=== PATIENT | male | born 1965 | race Caucasian/White ===

== ENCOUNTER 2017-08-09 08:18 | Day surgery (SDC) | payer OTHER ==
[~2017-08-09 08:18] MED LIST: DIPHENHYDRAMINE HCL 50 MG/ML VIAL ONE; EPINEPHRINE INJ 1 MG/10 ML DISP.SYRIN ONE; FENTANYL CITRATE INJ/PF 100 MCG/2 ML AMPUL ONE; FLUMAZENIL INJ 0.5 MG/5 ML VIAL ONE; GLUCAGON,HUMAN RECOMB 1 MG INJ ONE; MIDAZOLAM 2 MG/2 ML INJ ONE; NALOXONE HCL INJ/PF 0.4 MG/1 ML SDV ONE; ONDANSETRON HCL INJ/PF 4 MG/2 ML SDV ONE; PROPOFOL INJ 200 MG/20 ML VIAL IV ONE
[2017-08-09 11:29] VITALS: BP 106/75
--- NOTE | 2017-08-09 11:49 | Operative Report ---
Operative Report DATE OF SURGERY: 08/09/17 Operative Report: The risks benefits and alternatives of the procedure explained to the patient in detail and informed consent is obtained.A GIF Olympus video scope was inserted into the patient's mouth and hypopharynx, the esophagus is identified intubated and insufflated, the scope was then advanced through the esophagus stomach and duodenum, retroflexion maneuver is done, the esophagus stomach and first and second portions of the duodenum examined PREOPERATIVE DIAGNOSIS: Dyspepsia. Epigastric pain POSTOPERATIVE DIAGNOSIS: Gastritis status post biopsy rule out Helicobacter pylori. Small area of Bills's esophagus that was ablated in situ OPERATION: EGD with ablation. EGD with biopsy SURGEON: RASHID ROJAS ANESTHESIA: LMAC TISSUE REMOVED OR ALTERED: Gastric mucosal specimen obtained to rule out Helicobacter pylori COMPLICATIONS: None. ESTIMATED BLOOD LOSS: None. INTRAOPERATIVE FINDINGS: As described above. PROCEDURE: Patient tolerated procedure well. No immediate postprocedure complications are noted. Patient discharged in good condition. Discharge date 08/09/2017. Discharge diet: Regular. Discharge activity: Regular. 2-3 week follow-up to discuss findings. Patient is instructed to call the office or proceed to the emergency room should there be any further problems or questions. We will wait on pathology.
--- NOTE | 2017-08-09 17:22 | EKG REPORT ---
SEVERITY:- NORMAL ECG - SINUS RHYTHM : Confirmed by: Cedrick Campbell 09-Aug-2017 17:22:01
== END 2017-08-09 11:35 | disposition home or self-care (01) ==
LOC: OROUT 08:18
PROVIDERS: ATTEND Internal Medicine Gastroenterology
PROC: 0DB68ZX Excision of Stomach, Via Natural or Artificial Opening Endoscopic, Diagnostic (ICD-10-PCS; principal; 2017-08-09 10:45)
PROC: 0D558ZZ Destruction of Esophagus, Via Natural or Artificial Opening Endoscopic (ICD-10-PCS; 2017-08-09 10:45)
DX: K29.50 Unspecified chronic gastritis without bleeding (principal); K22.70 Barrett's esophagus without dysplasia; K44.9 Diaphragmatic hernia without obstruction or gangrene; K21.9 Gastro-esophageal reflux disease without esophagitis; Z88.0 Allergy status to penicillin; Z88.1 Allergy status to other antibiotic agents; Z79.899 Other long term (current) drug therapy; Z79.1 Long term (current) use of non-steroidal anti-inflammatories (NSAID); Z87.891 Personal history of nicotine dependence
CPT/HCPCS: 43270; 43239; 88305 ×2; 93005; 93010; J2704; 740; J0171; J1200; J1610; J2250; J2310; J2405; J3010; J3490

== ENCOUNTER 2018-07-04 07:19 | Day surgery (SDC) | payer OTHER ==
--- NOTE | 2018-06-25 09:55 | RADIOLOGY REPORT (SQ) ---
EXAM DESCRIPTION: CHEST PA/LATERAL COMPLETED DATE/TIME: 06/25/2018 9:18 am REASON FOR STUDY: PRE-OP COMPARISON: 11/10/2015. EXAM PARAMETERS: NUMBER OF VIEWS: two views TECHNIQUE: Digital Frontal and Lateral radiographic views of the chest acquired. RADIATION DOSE: NA LIMITATIONS: none FINDINGS: LUNGS AND PLEURA: No opacities, masses or pneumothorax. No pleural effusion. MEDIASTINUM AND HILAR STRUCTURES: No masses or contour abnormalities. HEART AND VASCULAR STRUCTURES: Heart normal size. No evidence for failure. BONES: No acute findings. HARDWARE: Spinal stimulator electrodes. Surgical clips in the left axilla. OTHER: No other significant finding. IMPRESSION: NO SIGNIFICANT RADIOGRAPHIC FINDING IN THE CHEST. TECHNICAL DOCUMENTATION: JOB ID: [id number] [employer]- All Rights Reserved Reading location - IP/workstation name: [email or web address]
[2018-06-25 10:14] LABS: HEMATOCRIT 44.7 % (37.9-51.0); MEAN CORPUSCULAR HEMOGLOBIN 29.5 pg (27.0-33.4); MEAN CORPUSCULAR HGB CONC 33.6 g/dL (32.0-36.0); MEAN CORPUSCULAR VOLUME 88 fl (80-97); PLATELET COUNT 249 10^3/uL (150-450); RED BLOOD COUNT 5.09 10^6/uL (4.35-5.55); RED CELL DISTRIBUTION WIDTH 13.3 % (11.5-14.0); WHITE BLOOD COUNT 6.6 10^3/uL (4.0-10.5)
[2018-06-25 10:44] LABS: ANION GAP 13 (5-19); BLOOD UREA NITROGEN 11 mg/dL (7-20); CALCIUM 9.7 mg/dL (8.4-10.2); CARBON DIOXIDE 27 mmol/L (22-30); CHLORIDE 105 mmol/L (98-107); GLUCOSE 82 mg/dL (75-110); POTASSIUM 4.6 mmol/L (3.6-5.0); SODIUM 145.4 mmol/L (137-145)
--- NOTE | 2018-06-25 21:52 | EKG REPORT ---
SEVERITY:- NORMAL ECG - SINUS RHYTHM : Confirmed by: Cedrick Campbell 25-Jun-2018 21:51:03
[~2018-07-04 07:19] MED LIST changes: +ACETAMINOPHEN 1,000 MG/100 ML RTUPB IV ONE; +BUPIVACAINE HCL 0.25 % INJ/PF (2.5 MG/1 ML) 30 ML VIAL ONE; +DEXAMETHASONE SOD PHOSPHATE INJ 4 MG/1 ML VIAL ONE; -DIPHENHYDRAMINE HCL 50 MG/ML VIAL ONE; -EPINEPHRINE INJ 1 MG/10 ML DISP.SYRIN ONE; -FLUMAZENIL INJ 0.5 MG/5 ML VIAL ONE; -GLUCAGON,HUMAN RECOMB 1 MG INJ ONE; +LACTATED RINGERS 1000 ML IV PRN; +LIDOCAINE 0.5% INJ-PF (5 MG/ML) 50 ML SDV SUBCUT PRN; +LIDOCAINE 2% INJ-PF (20 MG/ML) 10 ML AMPUL ONE; -NALOXONE HCL INJ/PF 0.4 MG/1 ML SDV ONE; +VANCOMYCIN HCL 1,000 MG in DEXTROSE 5%-WATER 250 ML IV PRN
[2018-07-04] MEDS ORDERED: PROMETHAZINE HCL INJ 25 MG/1 ML VIAL IV PRN ×2 (11:22)
[2018-07-04] MEDS ORDERED: FENTANYL CITRATE INJ/PF 100 MCG/2 ML AMPUL IV PRN ×3 (11:22)
[2018-07-04] MEDS ORDERED: MEPERIDINE HCL/PF INJ 25 MG/1 ML DISP.SYRIN IV PRN (11:22)
[2018-07-04] MEDS ORDERED: ONDANSETRON HCL INJ/PF 4 MG/2 ML SDV IV PRN (11:22)
[2018-07-04] MEDS ORDERED: MORPHINE SULFATE 10 MG/ML INJ IV PRN (11:22)
[2018-07-04] MEDS ORDERED: DIPHENHYDRAMINE HCL 50 MG/ML VIAL IV PRN (11:22)
[2018-07-04] MEDS: FENTANYL CITRATE INJ/PF 100 MCG/2 ML AMPUL ONE ×2 (12:50→12:55)
[2018-07-04] MEDS ORDERED: KETOROLAC TROMETHAMINE INJ/PF 30 MG/1 ML SDV ONE (13:05)
--- NOTE | 2018-07-04 13:16 | Discharge Summary ---
Discharge Summary (SDC) - Discharge Final Diagnosis: Bilateral inguinal hernia Date of Surgery: 07/04/18 Discharge Date: 07/04/18 Condition: Stable Treatment or Instructions: Discharge home. Diet as tolerated. Activity: No lifting more than 10 pounds 4 weeks. Follow-up in 7-10 days. Vichy 10/325 mg p.o. every 6 hours as needed pain. Referrals: CRISTINA MUJICA MD [Primary Care Provider] - Discharge Diet: As Tolerated Respiratory Treatments at Home: Deep Breathing/Coughing, Incentive Spirometer Discharge Activity: No Lifting Over 10 Pounds Home Care Assistance: None Needed Report the Following to Your Physician Immediately: Shortness of Breath, Nausea , Vomiting, Fever over 101 Degrees, Unusual Bleeding
[2018-07-04] MEDS ORDERED: HYDROCODONE/ACETAMINOPHEN 10-325 MG TABLET ONE (13:39)
[2018-07-04 14:29] VITALS: BP 110/60
[2018-07-04] MEDS ORDERED: VECURONIUM BROMIDE INJ 10 MG VIAL IV ONE (15:15)
[2018-07-04] MEDS ORDERED: NEOSTIGMINE METHYLSULFATE 10 MG/10 ML VIAL ONE (15:15)
[2018-07-04] MEDS ORDERED: GLYCOPYRROLATE 1 MG/5 ML SYRINGE ONE (15:15)
[2018-07-04] MEDS ORDERED: SUCCINYLCHOLINE CHLORIDE INJ 200 MG/10 ML VIAL ONE (15:15)
--- NOTE | 2018-07-04 15:40 | Operative Report ---
Nonrecallable Operative Report DATE OF SURGERY: 07/04/18 PREOPERATIVE DIAGNOSIS: Bilateral inguinal hernia POSTOPERATIVE DIAGNOSIS: 1. right-sided pantaloon inguinal hernia. 2. Left- sided indirect inguinal hernia OPERATION: Bilateral laparoscopic, robot-assisted inguinal hernia repair with mesh. SURGEON: SONA RAMSEY ANESTHESIA: GA TISSUE REMOVED OR ALTERED: None COMPLICATIONS: None apparent ESTIMATED BLOOD LOSS: Minimal PROCEDURE: Drains/implants: Large right and large left 3D max inguinal hernia mesh. Procedure in detail: After informed consent was obtained, the patient was brought to the operating room and laid in the supine position. The area of the abdomen was prepped and draped in a normal sterile fashion. A 15 blade scalpel was used to create a supraumbilical incision. This was deepened through the use of blunt dissection. The linea alba fascia was incised sharply. The abdomen was entered sharply. The balloon trocar was inserted, and pneumoperitoneum was achieved. Two 8 mm robotic trochars were placed in the right and left lateral abdominal wall under direct laparoscopic visualization. The robot was then brought over the patient and docked. I then assumed my position at the surgeon's console. Attention was turned to the right groin. The peritoneum was scored 2-3 cm superior to the inguinal hernia defect. A preperitoneal dissection was then undertaken. This was performed using sharp dissection, blunt dissection, and electrocautery. There were found to be 2 separate hernia defects on the right. There was a direct defect and an indirect defect. Hernia sacs were present in both defects. These hernia sacs were dissected free. Great care was taken not to injure the cord structures during the dissection. Once the hernia sac was freed, a large right-sided 3D max inguinal hernia mesh was placed into the preperitoneal space. It was sutured medially and superiorly using 2-0 Vicryl suture in simple interrupted fashion. Next, the peritoneum was sutured closed using 2-0 V lock suture in simple running fashion. The hernia repair was then inspected. It was found to be in good order. Attention was then turned to the left side. An incision was created in the peritoneum 2-3 cm superior to the left indirect inguinal hernia defect. A preperitoneal dissection was then undertaken. This was done using sharp dissection, blunt dissection, and electrocautery. The hernia sac was carefully freed from the cord structures. This was done with great care, so as not to injure the cord structures. Once the hernia sac was freed, it was everted. A large left-sided 3 D Max inguinal hernia mesh was placed into the preperitoneal space. It was sutured medially and superiorly using 2-0 Vicryl suture. Next, the peritoneum was closed using 2-0 V lock suture in simple running fashion. After this was complete, the repair was inspected. It was found to be in good order. The trochars were removed, and pneumoperitoneum was relieved. The supraumbilical fascia was closed using 0 Vicryl suture in [id number] fashion. The overlying skin was closed using 4-0 Vicryl Rapide suture in subcuticular fashion. All sponge, instrument, and needle counts were correct 2. Condition: Stable.
== END 2018-07-04 14:35 | disposition home or self-care (01) ==
LOC: OROUT 07:19
PROVIDERS: ATTEND Surgery
DX: K40.20 Bilateral inguinal hernia, without obstruction or gangrene, not specified as recurrent (principal); I10 Essential (primary) hypertension; M19.90 Unspecified osteoarthritis, unspecified site; Z96.89 Presence of other specified functional implants; E78.00 Pure hypercholesterolemia, unspecified; Z88.1 Allergy status to other antibiotic agents; Z85.828 Personal history of other malignant neoplasm of skin; Z87.891 Personal history of nicotine dependence; Z79.899 Other long term (current) drug therapy; Z01.818 Encounter for other preprocedural examination; Z98.890 Other specified postprocedural states
CPT/HCPCS: 49650; S2900; 36415; 71046; 80048; 840; 85027; 86850; 86900; 86901; 93005; 93010; J0131; J0330; J1100; J1885; J2250; J2405; J2704; J3010; J3370; J3490; J7060